=== PATIENT | male | born 1980 | race Caucasian/White ===

== ENCOUNTER 2020-05-01 07:08 | Day surgery (SDC) | payer OTHER ==
[~2020-05-01] VITALS: Ht 175.3 cm; Wt 115.5 kg
[~2020-05-01 07:08] MED LIST: BUTALB-APAP-CA1 EACH PO; PHENERGAN25 M1 PO; PROTONIX40 MG PO; REMERON30 MG PO; SYNTHROID25 MCG PO; ZANAFLEX4 MG PO
[2020-05-01 08:08] VITALS: BP 129/80; Ht 175.3 cm; Wt 115.5 kg
--- NOTE | 2020-05-01 09:51 | NUR ---
0922 DR. HU TONY.
--- NOTE | 2020-05-03 16:54 | OP ---
PATIENT NAME: SHERRY GAGNON MEDICAL RECORD: [id number] :84 LOCATION:D[facility] ADMISSION DATE: SURGEON: CHIO LUI DO DATE OF OPERATION: 05/01/2020 PROCEDURE: Colonoscopy with polypectomy. INDICATIONS FOR PROCEDURE: Abnormal CT of abdomen and pelvis, colitis. SCOPE: Yelago video pediatric colonoscope. MEDICATIONS: Propofol 400 mg IV per anesthesia. WITHDRAWAL TIME: 10 minutes. ESTIMATED BLOOD LOSS: Minimal. COMPLICATIONS: None. FINDINGS: Informed consent was given. The patient was made comfortable with the above medication. After reaching an adequate level of sedation by slow IV push, the patient was placed on his left side. A digital rectal examination was performed and was normal. The endoscope was then advanced under direct visualization through the rectum to the cecum, confirmed by the presence of the appendiceal orifice and ileocecal valve. The endoscope was slowly withdrawn and mucosa was carefully examined. The prep quality was good. There was 1 polyp visualized on today's examination. It was a benign appearing sessile polyp measuring approximately 8 mm in diameter. It was located in the sigmoid colon and it was removed using a hot snare. There was evidence of grade I internal hemorrhoids without bleeding upon retroflexion. The endoscope was withdrawn from the patient. The patient tolerated the procedure well and there were no complications. IMPRESSION: 1. Small benign appearing polyp located in the sigmoid colon, status post hot snare polypectomy. 2. Grade I internal hemorrhoids without bleeding. 3. Otherwise, normal colonoscopy without signs of colitis or diverticulosis. PLAN AND RECOMMENDATIONS: 1. Discharge home when recovery parameters are met. 2. Follow up biopsy specimen results. 3. High fiber diet. 4. Continue current medications. 5. Recall colonoscopy in 5 years. TRANSINT:[id number] Voice Confirmation ID: [id number] DOCUMENT ID: [id number] OPERATIVE REPORT [id number] SHERRY GAGNON HCIO LUI DO at 1654 CC: [id number] DICTATION DATE: 05/01/20 0934 EXPERT MEDICAL WRITER: 05/01/202007 [facility] 05/01/20 [place] [address]
== END 2020-05-01 10:20 | disposition home or self-care (01) ==
LOC: D.OPS 07:08
PROVIDERS: ATTEND Internal Medicine Gastroenterology
DX: R93.5 Abnormal findings on diagnostic imaging of other abdominal regions, including retroperitoneum (principal); K52.9 Noninfective gastroenteritis and colitis, unspecified; K63.5 Polyp of colon; K64.0 First degree hemorrhoids; R12 Heartburn; R16.0 Hepatomegaly, not elsewhere classified

== ENCOUNTER → 2020-05-29 09:25 | Outpatient (CLI) | payer OTHER ==
[2020-05-01 08:08] VITALS: BMI 37.6
== END | disposition home or self-care (01) ==
LOC: D.CT 09:25
PROVIDERS: ATTEND Internal Medicine Gastroenterology
DX: K76.89 Other specified diseases of liver (principal)